=== PATIENT | male | born 2000 | race Caucasian/White ===

== ENCOUNTER 2020-04-05 12:18 | Emergency (ER) | payer SELFPAY ==
--- NOTE | 2020-04-05 13:44 | EDM.PDOC ---
ED HPI GENERAL MEDICAL PROBLEM - General Chief Complaint: Cardiovascular Problem Stated Complaint: HEART PROBLEMS Time Seen by Provider: 04/05/20 13:01 Source of Information: Reports: Patient, RN, RN Notes Reviewed History Limitations: Reports: No Limitations - History of Present Illness INITIAL COMMENTS - FREE TEXT/NARRATIVE: For the past 3 and half weeks patient has had a pain in his chest on the left side below the left nipple line. This does not radiate. It is constant. He rates it at a 4. The pain does wake him up at night and in order to go back to sleep he drinks 2 beers and 2 shots. He has not tried anything else for pain. 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 He states he has not had any meth in 3 years. He does admit to some marijuana use. Patient states he will submit to a urine drug test prior to any medications being prescribed. Onset Date: 03/11/20 (Approximately 3-1/2 weeks ago. Sudden onset) Duration: Week(s):, Constant Location: Reports: Chest (Left chest below the nipple line in line with the axilla. Pain does not radiate or get any worse.) Quality: Reports: Sharp, Stabbing Severity: Moderate Improves with: Reports: Other (Patient states the only thing that helps his alcohol to put him back to sleep) Worsens with: Reports: Breathing, Rest Context: Reports: Other (Known cause or specific injury) Associated Symptoms: Denies: Cough, Diaphoresis, Nausea/Vomiting, Shortness of Breath (Difficulty taking deep breaths due to pain) Chest Pain Score (Numeric/FACES): 4 - Related Data Allergies Allergy/AdvReac Type Severity Reaction Status Date / Time No Known Allergies Allergy Verified 04/05/20 12:53 Home Meds: Home Meds NK [No Known Home Meds] 04/05/20 [History] Past Medical History Musculoskeletal History: Reports: Fracture Neurological History: Reports: Head Trauma, Other (See Below) Other 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 Denies: Cough, Sputum, Hemoptysis Cardiovascular: Denies: Blood Pressure Problem, Dyspnea on Exertion, Edema, Lightheadedness, Palpitations, Syncope Endocrine: Reports: No Symptoms GI/Abdominal: Reports: No Symptoms : Reports: No Symptoms Musculoskeletal: Reports: No Symptoms Skin: Reports: No Symptoms Neurological: Denies: Confusion, Dizziness, Headache, Numbness, Paresthesia, Syncope, Weakness, Change in Speech Psychiatric: Reports: Agitation, Anxiety, Other (Dates history of ADHD, depression. Taking no meds at this time). Denies: Suicidal Ideation Hematologic/Lymphatic: Reports: No Symptoms Immunologic: Reports: No Symptoms ED EXAM, GENERAL - Physical Exam Exam: See Below Free Text/Narrative:: Patient allowed exam and interview process. However when determining course of care, the patient decided that he would rather just have Tylenol and would like to leave. He needs to go back to work and he is worried about his ride leaving him. Exam Limited By: No Limitations General Appearance: Alert, WD/WN, No Apparent Distress Nose: Normal Inspection, Normal Mucosa, No Blood Throat/Mouth: Normal Inspection Head: Atraumatic, Normocephalic Neck: Normal Inspection, Supple, Non-Tender, Full Range of Motion Respiratory/Chest: No Respiratory Distress, Normal Breath Sounds, No Accessory Muscle Use, Decreased Breath Sounds (Left lower), Splinting. No: Chest Non- Tender, Wheezing, Accessory Muscle Use Cardiovascular: Normal Peripheral Pulses, Regular Rate, Rhythm, No Edema, No Gallop, No Murmur, No Rub Peripheral Pulses: 2+: Carotid (L), Carotid (R), Radial (L), Radial (R) GI/Abdominal: Normal Bowel Sounds, Soft, Non-Tender, No Organomegaly, No Distention, No Abnormal Bruit, No Mass, Pelvis Stable Back Exam: Normal Inspection, Full Range of Motion Extremities: Normal Inspection, Normal Range of Motion, Non-Tender, No Pedal Edema, Normal Capillary Refill Neurological: Alert, Oriented, CN II-XII Intact, Normal Cognition Psychiatric: Anxious Skin Exam: Warm, Dry, Intact, Tattoo(s) Course - Vital Signs Last Recorded V/S: Last Vital Signs Temp 36.6 C 04/05/20 13:02 Pulse 106 H 04/05/20 13:02 Resp 15 04/05/20 13:02 BP 133/89 04/05/20 13:02 Pulse Ox 97 04/05/20 13:02 - Re-Assessments/Exams Free Text/Narrative Re-Assessment/Exam: 04/05/20 13:52 Reaffirmed with patient that he has decided to leave without completing his exam. He would like a note for work stating that he was here. He missed work recently due to COVID quarantine as a result of having to be tested which was negative. He is worried about car payment, his rent, and pain the rest of his bills. He was given a ride by a coworker. He is fearing that this person is going to leave him here and he would have no way home. He has elected to stop the visit and go back to work. Patient was provided AMA paperwork which he signed. He was given a note that said he presented to the ER. 04/05/20 13:53 Departure - Departure Time of Disposition: 13:42 Disposition: Against Medical Advice 07 Condition: Fair Clinical Impression: Pain, Pleuritic pain Referrals: PCP,None [Primary Care Provider] - Forms: ED Department Discharge Sepsis Event Note (ED) - Evaluation Sepsis Screening Result: No Definite Risk - Focused Exam Vital Signs: Vital Signs Temp Pulse Resp BP Pulse Ox 04/05/20 13:02 36.6 C 106 H 15 133/89 97 04/05/20 13:01 36.6 C 106 H 15 133/89 97
== END 2020-04-05 13:43 | disposition left against medical advice (07) ==
LOC: JP.ED 12:18
DX: R07.81 Pleurodynia (principal); F17.210 Nicotine dependence, cigarettes, uncomplicated
CPT/HCPCS: 99282; 99284

== ENCOUNTER 2021-01-06 16:44 | Emergency (ER) | payer MEDICAID ==
[2021-01-06] MEDS ORDERED: Sodium Chloride 0.9% 10 ML Syringe FLUSH PRN (16:59)
[2021-01-06] MEDS ORDERED: HYDROmorphone 0.5 MG/0.5 ML Syringe IVPUSH ONE ×2 (17:00→18:09)
--- NOTE | 2021-01-06 17:33 | EDM.PDOC ---
<Lucio James G - Last Filed: 01/06/21 18:08> ED HPI GENERAL MEDICAL PROBLEM - General Chief Complaint: Genitourinary Problem Stated Complaint: GROIN PAIN Time Seen by Provider: 01/06/21 17:10 Source of Information: Reports: Patient. Denies: Old Records History Limitations: Reports: No Limitations - History of Present Illness INITIAL COMMENTS - FREE TEXT/NARRATIVE: 20 yo male presents with R testicular pain that began abruptly today between 3 and 3:30 pm today. He tried to use the bathroom before arrival and passed a small amount of urine and a small amt of stool. He denies injury. He has no personal hx of kidney stones, but does have a FHx of kidney stones. Onset: Today, Sudden Onset Date: 01/06/21 Onset Time: 15:15 Duration: Hour(s): (~2), Constant Location: Reports: Pelvis (testicle) Quality: Reports: Ache Severity: Severe Improves with: Reports: None Worsens with: Reports: None Context: Reports: Other Associated Symptoms: Reports: No Other Symptoms Treatments PRINTER HELPER: Reports: NSAIDS (naproxen 2 tabs) Groin Pain Score (Numeric/FACES): 6 - Related Data Allergies Allergy/AdvReac Type Severity Reaction Status Date / Time No Known Allergies Allergy Verified 01/06/21 16:59 Home Meds: Home Meds NK [No Known Home Meds] 04/05/20 [History] Past Medical History Musculoskeletal History: Reports: Fracture Neurological History: Reports: Head Trauma, Other (See Below) Other 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 Psychiatric History: Reports: ADD, ADHD, Anxiety, Bipolar, Depression, Schizophrenia, Other (See Below) Other Psychiatric History: multiple personality disorder - Past Surgical History Head Surgeries/Procedures: Reports: None Neurological Surgical History: Reports: None Musculoskeletal Surgical History: Reports: None, Other (See Below) Other Musculoskeletal Surgeries/Procedures:: pins in right ankle Social & Family History - Tobacco Use Tobacco Use Status *Q: Current Every Day Tobacco User Years of Tobacco use: 15 Packs/Tins Daily: 0.5 - Caffeine Use Caffeine Use: Reports: Energy Drinks, Soda, Tea - Recreational Drug Use Recreational Drug Use: Yes Recreational Drug Type: Reports: Marijuana/Hashish ED ROS GENERAL - Review of Systems Review Of Systems: See Below Constitutional: Reports: No Symptoms HEENT: Reports: No Symptoms Respiratory: Reports: No Symptoms Cardiovascular: Reports: No Symptoms GI/Abdominal: Reports: No Symptoms : Reports: Other (R testicle pain) Musculoskeletal: Reports: No Symptoms Skin: Reports: No Symptoms Neurological: Reports: No Symptoms ED EXAM, RENAL/ - Physical Exam Exam: See Below Exam Limited By: No Limitations General Appearance: Alert, WD/WN, Mild Distress Eye Exam: Bilateral Eye: Normal Inspection Ears: Normal External Exam, Normal Canal, Hearing Grossly Normal Nose: Normal Inspection, No Blood Throat/Mouth: Normal Inspection, Normal Lips, Normal Voice, No Airway Compromise Head: Atraumatic, Normocephalic Neck: Normal Inspection Respiratory/Chest: No Respiratory Distress, No Accessory Muscle Use GI/Abdominal: Soft, No Distention, Tender (mild lower abdominal tenderness). No: Guarding, Rigid, Rebound Extremities: Normal Inspection Neurological: Alert, Oriented, CN II-XII Intact, Normal Cognition, No Motor/Sensory Deficits Psychiatric: Normal Affect, Normal Mood, Anxious Skin Exam: Warm, Dry, Intact, Normal Color, No Rash Course - Radiology Interpretation Free Text/Narrative:: Testicular US-neg CT abd/pelvis without contrast- Departure - Departure Disposition: Home, Self-Care 01 Clinical Impression: Ureteral stone - Discharge Information Referrals: PCP,None [Primary Care Provider] - Forms: ED Department Discharge Care Plan Goals: push fluids, flomax .4 daily, torodol 10mg qid as needed for pain, percocet 5/325 q6h prn for pain #4 strain all urine. Sepsis Event Note (ED) - Evaluation Sepsis Screening Result: No Definite Risk <Tameka Ritchie - Last Filed: 01/06/21 19:19> Course - Vital Signs Last Recorded V/S: Last Vital Signs Temp 36.4 C 01/06/21 16:59 Pulse 61 01/06/21 16:59 Resp 18 01/06/21 16:59 BP 141/88 H 01/06/21 16:59 Pulse Ox 99 01/06/21 16:59 - Orders/Labs/Meds Orders: Active Orders 24 hr Category Date Time Status Scrotal Duplex Complete [US] Stat Exams 01/06/21 17:24 Taken Sodium Chloride 0.9% [Saline Flush] Med 01/06/21 16:59 Active 10 ml FLUSH ASDIRECTED PRN Saline Lock Insert [OM.PC] Routine Oth 01/06/21 16:59 Ordered Medication Orders Sodium Chloride (Sodium Chloride 0.9% 10 Ml Syringe) 10 ml FLUSH ASDIRECTED PRN PRN Reason: Keep Vein Open Last Admin: 01/06/21 17:09 Dose: 10 ml Documented by: PARMINDER Labs: Laboratory Tests 01/06/21 Range/Units 17:09 Urine Color Yellow (YELLOW) Urine Appearance Clear (CLEAR) Urine pH 7.0 (5.0-8.0) Ur Specific Steele >= 1.030 (1.008-1.030) Urine Protein Negative (NEGATIVE) mg/dL Urine Glucose (UA) Negative (NEGATIVE) mg/dL Urine Ketones Negative (NEGATIVE) mg/dL Urine Occult Blood Trace-intact H (NEGATIVE) Urine Nitrite Negative (NEGATIVE) Urine Bilirubin Negative (NEGATIVE) Urine Urobilinogen 0.2 (0.2-1.0) EU/dL Ur Leukocyte Esterase Negative (NEGATIVE) Urine RBC 0-5 (0-5) Urine WBC 0-5 (0-5) Ur Epithelial Cells Rare Amorphous Sediment Moderate Urine Bacteria Not seen Urine Mucus Moderate Meds: Medications Generic Name Dose Route Start Last Admin Trade Name Freq PRN Reason Stop Dose Admin Sodium Chloride 10 ml 01/06/21 16:59 01/06/21 17:09 Sodium Chloride 0.9% 10 Ml Syringe FLUSH 10 ml ASDIRECTED PRN Administration Keep Vein Open Discontinued Medications Generic Name Dose Route Start Last Admin Trade Name Cas PRN Reason Stop Dose Admin Hydromorphone HCl 0.5 mg 01/06/21 17:00 01/06/21 17:09 Hydromorphone 0.5 Mg/0.5 Ml Syringe IVPUSH 01/06/21 17:01 0.5 mg ONETIME ONE Administration Hydromorphone HCl 0.5 mg 01/06/21 18:09 01/06/21 18:18 Hydromorphone 0.5 Mg/0.5 Ml Syringe IVPUSH 01/06/21 18:10 0.5 mg ONETIME ONE Administration Ketorolac Tromethamine 30 mg 01/06/21 19:15 Ketorolac 30 Mg/Ml Sdv IVPUSH 01/06/21 19:16 ONETIME ONE Tamsulosin HCl 0.4 mg 01/06/21 19:14 Tamsulosin 0.4 Mg Cap.Er PO 01/06/21 19:15 ONETIME ONE - Re-Assessments/Exams Free Text/Narrative Re-Assessment/Exam: 01/06/21 19:15 cat scan did reveal a 1mm stone just outside of the bladder. He is rating his pain at a 6 at this point. He was given flomax .4 and he was given torodol 30 mg iv. Departure - Departure Time of Disposition: 19:17 Condition: Fair Sepsis Event Note (ED) - Focused Exam Vital Signs: Vital Signs Temp Pulse Resp BP Pulse Ox 01/06/21 16:59 36.4 C 61 18 141/88 H 99 01/06/21 16:54 36.4 C 61 18 141/88 H 99
--- NOTE | 2021-01-06 19:02 | CRLCT ---
INDICATION: Testicular pain. TECHNIQUE: CT abdomen and pelvis without contrast. COMPARISON: None. FINDINGS: Lower chest: Unremarkable. Liver: Normal in size and attenuation. No masses. Gallbladder and bile ducts: No stones or inflammation. No biliary dilatation. Pancreas: Unremarkable. No mass or inflammation. Spleen: Normal in size. No masses. Adrenal glands: Normal in size. No nodules. Kidneys: There is a tiny 1 mm stone at the left ureterovesical junction on series 2, image 124. This stone is causing minimal hydronephrosis. There are 2 additional tiny stones remaining in the left kidney. GI tract: Unremarkable. Normal in caliber. No sign of mass or inflammation. Normal appendix. Vasculature: Unremarkable. Lymph nodes: No lymphadenopathy. Abdominal wall/Omentum/Peritoneum: Unremarkable. No sign of mass or infiltration. No free air or significant free fluid. Pelvis: Unremarkable. No pelvic masses. Bones: Unremarkable for age. IMPRESSION: Tiny 1 mm stone at the left UVJ causing minimal hydronephrosis. Dictated by Santy Downs MD @ 01/06/2021 7:00:49 PM Please note that all CT scans at this facility use dose modulation, iterative reconstruction, and/or weight-based dosing when appropriate to reduce radiation dose to as low as reasonably achievable. Dictated by: Santy Downs MD @ 01/06/2021 19:00:55 (Electronically Signed)
[2021-01-06] MEDS ORDERED: Tamsulosin 0.4 MG Cap.ER PO ONE (19:14)
[2021-01-06] MEDS ORDERED: Ketorolac 30 MG/ML SDV IVPUSH ONE (19:15)
--- NOTE | 2021-01-07 09:13 | US ---
Scrotal Duplex Complete CLINICAL HISTORY: Left testicle are pain FINDINGS: Doppler spectra shows normal flow to both testes. The right testicle measures 3.7 x 2.5 x 3.0 cm. The right epididymis has a normal appearance The left testicle measures 3.9 x 2.4 x 3.0 cm. The left epididymis has a normal appearance There are no masses or evidence for varicocele. No abnormal fluid collections are identified IMPRESSION: Negative testicular ultrasound
== END 2021-01-06 19:43 | disposition home or self-care (01) ==
LOC: JP.ED 16:44
DX: N13.2 Hydronephrosis with renal and ureteral calculous obstruction (principal); Z72.0 Tobacco use
CPT/HCPCS: 74176; 81001; 93975; 96374; 96375; 96376; 99283; 99284; A9270; J1170; J1885

== ENCOUNTER 2021-09-12 21:38 | Emergency (ER) | payer MEDICAID | END 2021-09-12 22:58 | disposition home or self-care (01) | LOC: JP.ED 21:38 | DX: S82.822A Torus fracture of lower end of left fibula, initial encounter for closed fracture (principal); Z87.891 Personal history of nicotine dependence; W20.8XXA Other cause of strike by thrown, projected or falling object, initial encounter | CPT/HCPCS: 73610-26-LT; 73610-LT; 99283 ==

== ENCOUNTER 2022-08-23 14:50 | Emergency (ER) | payer MEDICAID ==
[2022-08-23 16:00] LABS: CORONAVIRUS COVID-19 NAA NEGATIVE (NEGATIVE)
[2022-08-23] MEDS ORDERED: Ondansetron 4 MG/2 ML SDV IVPUSH ONE (16:15)
[2022-08-23] MEDS ORDERED: Sodium Chloride 0.9% 10 ML Syringe FLUSH PRN (16:15)
[2022-08-23] MEDS ORDERED: Lactated Ringers 1,000 ML IV ONE (16:15)
== END 2022-08-23 18:00 | disposition home or self-care (01) ==
LOC: JP.ED 14:50
DX: J10.1 Influenza due to other identified influenza virus with other respiratory manifestations (principal); Z87.891 Personal history of nicotine dependence; Z20.822 Contact with and (suspected) exposure to COVID-19
CPT/HCPCS: 0241U; 96361; 96374; 99284-25; J2405; J3490; J7120